=== PATIENT | male | born 1965 | race Caucasian/White ===

== ENCOUNTER 2018-11-02 09:32 | Outpatient (CLI) | payer OTHER ==
--- NOTE | 2018-11-02 18:40 | CT ---
CT ABDOMEN AND PELVIS WITH CONTRAST 11/02/[address] of the abdomen and pelvis was done for evaluation of generalized abdominal pain. Axial slic es were acquired after giving oral and IV contrast. Then coronal and sagittal reconstructions were do ne. The lung bases are clear. The liver, spleen, pancreas, gallbladder, adrenal glands, kidneys, and abdominal aorta all shows no a cute findings. Some calcification is seen in the lower abdominal aorta, but there is no aneurysm. The major finding on this study is very definite, prominent bowel wall thickening in the duodenum and proximal small bowel. It remains this way through about the mid small bowel then assumes a more norm al appearance distally. Regarding the colon, there is some prominence of its folds but none that trul y appear acute. There is no sign of diverticulitis. There was no mary-intestinal stranding. No free a ir or free fluid was seen. CT of the pelvis showed no masses, inflammatory changes in fat or free fluid. Small fat filled inguin al hernias are seen bilaterally, largest on the right. IMPRESSION: Very prominent thickening of duodenum and proximal small bowel. Enteritis from infectious or inflamma tory etiology seems most likely. Code T POS: HOME
== END 2018-11-02 09:33 | disposition home or self-care (01) ==
LOC: BURULT 09:32 → BURCT 09:33
PROVIDERS: ATTEND Family Medicine
DX: R10.84 Generalized abdominal pain (principal); R93.3 Abnormal findings on diagnostic imaging of other parts of digestive tract
CPT/HCPCS: 74177